=== PATIENT | male | born 1940 | race Caucasian/White ===

== ENCOUNTER → 2020-12-10 | Outpatient (CLI) | payer OTHER ==
[~2020-12-10] MED LIST: ADULT LOW DOSE81 MG PO; AMLODIPINE BESY10 MG PO; CRESTOR20 MG PO; ELIQUIS5 MG PO; INVANZ 1 GM VIAL1 GM IM; INVANZ 1 GM VIAL1 GM IV; LIOTHYRONINE SO5 MCG PO; PAROXETINE HCL30 MG PO; PIOGLITAZONE HC30 MG PO; TRULICITY1.5 MG/0.5 SQ
== END ==
LOC: ECHO 13:45
DX: R60.9 Edema, unspecified (principal)
CPT/HCPCS: ECHO; 93306; 93970